=== PATIENT | female | born 1935 | race Caucasian/White ===

== ENCOUNTER → 2016-10-17 | Outpatient (CLI) | payer OTHER ==
[~2016-10-17] MED LIST: ALEVE ARTHRITI220 MG PO; ASPI-COR81 M1 PO; CALCIUM600 MG PO; CLARITIN10 MG PO; COMPLEXED POTAS99 MG PO; DICLOFENAC SOD50 MG PO; DOXYCYCLINE MO100 M1 PO; FISH OIL SUPER1 SGL PO; FISH OIL500 M1 PO; KEFZOL1 GM IM; METFORMIN1000 MG PO; OMEPRAZOLE20 MG PO; POTASSIUM GLUC550 M1 PO; SINGULAIR10 M1 PO; SINGULAIR10 MG PO
--- NOTE | ~2016-10-17 | PR ---
[place], [place] PROGRESS NOTE NAME: LUCIO QUINONES [facility] #: [id number] UNIT #: [id number] ROOM: DOCTOR: IRENE VASQUEZ M.D. BIRTHDATE: [birth year] DOS: 10/17/2016 This is a new wound care patient. CHIEF COMPLAINT: Wounds of the left knee and the abdomen. HISTORY OF PRESENT ILLNESS: The location of the wound is the left knee, it is secondary to trauma with repair, laceration, wound dehiscence and infection with severe cellulitis requiring an inpatient admission. The wounds have been present for approximately 5-6 weeks now. The patient has also a history of morbid obesity with recurrent wounds of the abdominal folds secondary to excessive moisture and pressure. She has a very large pannus that has problems with recurrent moisture. She is in a custodial at this time. She is there temporarily. She was seen in the Wound Clinic last week for the first time. She is going to be finishing with her rehabilitation and is going to be going home tomorrow. She is finished with her antibiotics. She says she is doing fairly well, as far as the wounds go. She continues to have some open wounds of the abdomen. We did ask to try to put a sheet in-between the folds to see if that could keep her abdominal fold ; however, she says she almost tripped over the sheet when she got up to ambulate so this did not work for her though she is using ABDs pads in the meantime to help keep the skin fold . OBJECTIVE: VITAL SIGNS: Stable. Temperature is 98.1, pulse is 68, respirations 18, blood pressure is 168/64. WOUND EXAM: The left lower extremity wound on the lateral side of the knee is measuring 2 x 3.1 x 0.1. It looks booth cleaner. It is not red. It is not erythematous. There is a very minimal necrotic tissue present. The wound on the medial aspect of the knee is also looking a whole lot better as well. The measurements are not a whole lot different, but there is overall much less necrotic tissue present and good granulation tissue. The length is 4.3 x 7 x 0.3 and there is a moderate amount of fibrin slough present in the base of the wound, but overall much less necrotic tissue. There is no surrounding cellulitis or erythema. There is a smaller wound distally to that, that is measuring 0.6 x 1.6 x 0.3, and there is really very minimal fibrin slough present. It looks it is not erythematous at all. There is another wound measuring on the abdomen that is measuring smaller at 0.6 x 0.6 x 0.1 that is on the left side of the lower quadrant. The wound on the right side of the abdomen is measuring a little smaller in length at 1.8, but measuring little wider and with 3.4 x 0.2. It still appears to be a stage 2 ulcer at this time. There is minimal to no necrotic tissue present at all. The other wounds are clustered in the abdominal folds and all measuring 4.5 x 2.8 x 0.1 and those appear fairly stable. They are open, but overall appearance is about the same as last week. Debridement was done of all of the knee wounds. There was a debridement done of the large wound on the medial aspect. The tissue removed was fibrin, slough and subcutaneous tissue. There was a minimal amount of bleeding. Post-debridement measurements are unchanged. The patient tolerated the debridement well. Instrument used was forceps, scissors and a [place], [place] [id number] #: [id number] ROOM: DOCTOR: IRENE VASQUEZ M.D. BIRTHDATE: [birth year] curette. Cetacaine spray was used top for topical anesthesia. On the lateral leg, the wound was debrided and this was more of a selective debridement. The only tissue removed was just some minimal fibrin, slough. There was no bleeding and no change in the post-debridement measurements. The patient tolerated the debridement well. The instrument used was a curette. There was also debridement done of the medial wound on the knee, which was a selective debridement as well. Tissue removed just fibrin, slough only. Post-debridement measurements are unchanged. There was no bleeding. The patient tolerated the debridement well. As far as the abdominal wounds, no debridement was done of these wounds. ASSESSMENT AND PLAN: Traumatic open wounds of the left knee with wound dehiscence and infection. Infection seems to have resolved. She is off antibiotics. The necrotic tissues definitely improving and she seems to be improving gradually. She does have some problems with the tape sticking to her skin causing some irritation. It is difficult area to keep a dressing on. So I would think we will try a foam with adhesive border over the TheraHoney and Maxorb to see if this will help hold the dressings in place. The abdominal wounds are related to moisture and pressure from the excessive pressure of her abdominal pannus. I would like to use Maxorb silver on any of the open wounds, just place them directly in the wound base and an ABD pads over this to help keep the abdominal folds , see how this helps and continue with the antifungal powder in the creases of the abdomen, but not on the wound directly. Follow up in 1 week. IRENE VASQUEZ MD CM:ELMO [id number] IRENE VASQUEZ M.D. 10/18/16 0742 interface
== END ==
LOC: WOUNDCARE 01:22
DX: S81.012D Laceration without foreign body, left knee, subsequent encounter (principal); L89.892 Pressure ulcer of other site, stage 2; E66.01 Morbid (severe) obesity due to excess calories; X58.XXXD Exposure to other specified factors, subsequent encounter

== ENCOUNTER → 2016-10-24 | Outpatient (CLI) | payer OTHER ==
--- NOTE | ~2016-10-24 | PR ---
[place], [place] PROGRESS NOTE NAME: LUCIO QUINONES [facility] #: [id number] UNIT #: [id number] ROOM: DOCTOR: CHRISTINA VidalIRENE BIRTHDATE: [birth year] DOS: 10/24/2016 WOUND CARE FOLLOWUP CHIEF COMPLAINT: Followup of left knee ulcers as well as ulcers of the abdomen. HISTORY OF PRESENT ILLNESS: The location of the wound is the left knee, it is secondary to trauma with subsequent repair, laceration, wound dehiscence, infection, severe cellulitis, complicated by morbid obesity as well. She has had the wounds for approximately 6-7 weeks. She had a prolonged hospital stay with IV antibiotics, eventually requiring rehabilitation at a shelter and then subsequently coming to the Wound Clinic. We have been following her for approximately 2 weeks now in the Wound Clinic. She does not have any specific complaints regarding the left knee wounds; however, she continues to have problems with recurrent wounds of the abdomen. There are open areas that she has had off and on for a long time now. She has a prominent large abdominal pannus that has a lot of excoriation, excessive moisture and causing pressure related injuries and openings from this. She is morbidly obese. She is now at home and has Home Health to help her. We did recommend Maxorb silver to be applied to the open areas around the wounds; however, it does not appear that this has been done. The patient states that as far as she knows, the only thing that is being put on there is nystatin powder and ABD pads. She has no other specific complaints. PHYSICAL EXAMINATION: She is afebrile. Her pulse is 64, respirations 18, blood pressure is 144/88 and temperature is 98.5. The left knee wound on the lateral side is measuring smaller at 1.6 x 2.7 x 0.1. There is minimal fibrin slough present in the base of the wound. It looks clean and is definitely healing. The other quite large wound that was located on the anterior knee portion is also measuring smaller at 3.8 x 6.5 x 0.3. It definitely looks a lot telephone cleaner with no sign of cellulitis or infection. There is a smaller open wound of the distal part of the knee that is measuring 0.7 x 1.4 x 0.2, that also looks improved with minimal necrotic tissue. There is a wound on the left part of the abdomen that is measuring 1.1 x 1.5 x 0.1. It looks superficial in nature and is quite circular. There is another wound on the right part of the lower abdomen, it is not improved at all, its measuring 2 x 2.6 x 0.1 and there is a halo around it with erythema around this area. There is a lot of areas between the abdominal folds that are reddened and with some satellite type lesions. Debridement was done of the larger abdominal wound. In the middle of it, it was noted a slight black area that looks to be related to a blood blister that was left alone, but there was some minimal slough present in the base of the wound, this was debrided and it was a superficial debridement selective only to remove just fibrin slough. There was minimal amount of bleeding that was controlled with pressure. The instrument used was a curette. The patient tolerated the debridement well. Post-debridement, a swab culture was obtained at this area. There was also subcutaneous debridements done of all the leg wounds. Tissue removed was fibrin slough and subcutaneous tissue. There was minimal amount of bleeding. The only thing there was some depth change in the larger wound to 0.4, but otherwise the measurements were the same. There was a minimal amount [place], [place] PROGRESS NOTE NAME: LUCIO QUINONES UNIT #: [id number] ROOM: DOCTOR: IRENE VASQUEZ M.D. BIRTHDATE: [birth year] of bleeding that was controlled with pressure. Instrument utilized was a curette. ASSESSMENT AND PLAN: The traumatic wounds of the left knee are definitely improving. I will continue with the present regimen which is TheraHoney and silver dressing, Maxorb silver is being used and a foam over it and having her change it every other day. Hopefully, we will be able to change to collagen soon and this is my anticipation within the next week. As far as the abdominal wounds go, I do think that it is pressure related and also secondary to fungal component and excessive moisture. I would like to use a silver dressing, which I suggested it before, Maxorb silver, but it does not seem to have been utilized. We will try the SilvaSorb powder on the open wounds. As far as the areas in the skin folds, I would like to instead of using powder, try the cream, ketaconazole, because it does not seem that the nystatin was really helping any. I would like her to wash her abdominal area daily with Hibiclens skin cleanser and have her try to keep the field with 100% cotton towel, soft, not rough, just to help keep excessive moisture in between those areas and hopefully this will help keep some of the pressure off of these wounds. It is really hard to put a dressing on these areas due to her body habitus at this point. So, ideally if we could apply a foam to one of these wounds that might help relieve some of the pressure, but I do not think it will stick and the patient has reported in the past that she does not want any type of dressings on those areas other than something that just can be laid on top of the wound. So, we will try this for now and see how it works. Cultures were taken. I do not think that there is a bacterial issue at this point, I think it is fungal related at this point. Followup is in one week. IRENE VASQUEZ MD CM:ELMO [id number] IRENE VASQUEZ M.D. 10/24/16 1432 interface
== END ==
LOC: WOUNDCARE 01:32
DX: T81.31XD Disruption of external operation (surgical) wound, not elsewhere classified, subsequent encounter (principal); L97.821 Non-pressure chronic ulcer of other part of left lower leg limited to breakdown of skin; L98.491 Non-pressure chronic ulcer of skin of other sites limited to breakdown of skin; E66.01 Morbid (severe) obesity due to excess calories; L30.4 Erythema intertrigo; Y83.9 Surgical procedure, unspecified as the cause of abnormal reaction of the patient, or of later complication, without mention of misadventure at the time of the procedure

== ENCOUNTER → 2016-10-31 | Outpatient (CLI) | payer OTHER ==
--- NOTE | ~2016-10-31 | PR ---
[place], [place] PROGRESS NOTE [id number] #: [id number] ROOM: DOCTOR: CHRISTINA VidalIRENE BIRTHDATE: [birth year] DOS: 10/31/2016 CHIEF COMPLAINT: Followup of left leg ulcerations as well as ulcers of the abdomen. HISTORY OF PRESENT ILLNESS: The location of the wound is the left knee. It is traumatic in origin, with subsequent repair. Postop wound dehiscence and infection with severe cellulitis. The wounds have been present for approximately 7-8 weeks now and they have been continuously improving and getting smaller. She also has some chronic, reoccurring wounds of the abdominal folds, which healed, but then reoccur quite quickly. These are pressure related and also related to excessive moisture and candidiasis. Her comorbid conditions are marked debility and severe obesity. She offers no specific complaints at this time. PHYSICAL EXAMINATION: GENERAL: She is afebrile, pulse is 70, respirations 18, temperature is 97.9, blood pressure is 160/82. SKIN: The wound on the left lateral knee is measuring smaller 1.4 x 2.5 x 0.1. There is really no surrounding erythema. There is good granulation tissue. Minimal fibrinous slough is present. The large wound on the medial aspect of the knee is measuring smaller at 3.5 x 5.6 x 0.3 in certain areas, although in general, the depth is much less. There is minimal fibrin slough present in the base of the wound. The periwound is nonerythematous. The smaller wound distally is also much smaller and is getting better at 0.5 x 0.6 x 0.1. There is no necrotic tissue present. The wound on the right part of the abdominal fold is essentially same at 2 x 2.6 x 0.1. The surrounding erythema is much improved. There is really no visible necrotic tissue present. A lot of the erythema, excessive moisture, and intertrigo that was present before seems much improved as well. She has a new wound that is measuring 1.2 x 1.3 x 0.1 and this area has also reopened apparent. She had a wound here before that looked to have healed and it has reopened. Another area that is open as 1 x 0.8 x 0.1, that also looks to be a recurrent wound in the abdominal folds, mostly in the left side. Debridement was done of the two larger knee wounds. The tissue removed was fibrin slough and subcutaneous tissue. Instrument utilized was a curette. There was a minimal amount of bleeding that was controlled with pressure. Post-debridement measurements are not changed. The patient tolerated the debridement well. A curette was utilized. ASSESSMENT AND PLAN: Chronic ulcer of the left knee, which is definitely improving. We will continue with the current dressing, which is honey and Maxorb Ag and hopefully, change to a collagen by next week. It does look like it is definitely getting a lot smaller. The wounds on her abdominal folds are secondary to pressure, excessive moisture, and probable fungal element as well. The, ketaconazole seems to have really helped as far as the erythema that was noted before. We are going to continue with that and have her continue with the Arglaes powder and also use a little bit of Maxorb over these areas to see if we can help dry them up a little bit more. If we can get a foam on there to help keep some of the pressure and friction from rubbing against the folds that might help as well. She does have some allergies to adhesive, so will have to use the [place], [place] PROGRESS NOTE NAME: LUCIO QUINONES UNIT #: [id number] ROOM: DOCTOR: IRENE VASQUEZ M.D. BIRTHDATE: [birth year] tape such as Medi-Fix tape for now, have her follow up in one week. IRENE VASQUEZ MD CM:PNLI [id number] IRENE VASQUEZ M.D. 11/01/16 1139 interface
== END | disposition home or self-care (01) ==
LOC: WOUNDCARE 03:02
DX: T81.31XD Disruption of external operation (surgical) wound, not elsewhere classified, subsequent encounter (principal); L97.821 Non-pressure chronic ulcer of other part of left lower leg limited to breakdown of skin; E66.9 Obesity, unspecified; L30.4 Erythema intertrigo; Y83.9 Surgical procedure, unspecified as the cause of abnormal reaction of the patient, or of later complication, without mention of misadventure at the time of the procedure

== ENCOUNTER → 2016-11-07 | Outpatient (CLI) | payer OTHER ==
--- NOTE | ~2016-11-07 | PR ---
[place], [place] PROGRESS NOTE NAME: LUCIO QUINONES [facility] #: [id number] UNIT #: [id number] ROOM: DOCTOR: CHRISTINA VidalIRENE BIRTHDATE: [birth year] DOS: 11/07/2016 CHIEF COMPLAINT: Followup of left leg ulceration as well as ulcers of the abdomen. HISTORY OF PRESENT ILLNESS: The location of the wound is the left knee. She has had several wounds there, 3 in general that were quite large. They were traumatic in origin, that required suturing. There was a postop wound dehiscence with infection and severe cellulitis. She has had the wounds for approximately 8-9 weeks now and they have been continuingly improving and getting much smaller. She also has some chronic recurring abdominal ulcers in the skin folds that are secondary to pressure as well as severe pannus formation, lots of moisture and evidence of candidiasis intertrigo. She is morbidly obese and severely debilitated. Today, she comes in stating that the wounds of her knees look much better. There is one area of the wound on her knee that is somewhat more protuberant than others, but overall they are looking much better in general, though abdominal folds; however, the wounds that had healed last week have now reopened and there is a new ulcer on the left lateral side and has opened up again. I had recommended Maxorb over these areas, however, I do not think that they have been using it. She has home health. She does not recall them using any Maxorb on this area. PHYSICAL EXAMINATION: VITAL SIGNS: She is afebrile, pulse of 74, respirations 18, blood pressure is 144/70. SKIN: The wound of her lateral left lower leg is measuring 1.2 x 1.8 x 0.1, it is hypergranulated. There is no periwound erythema or cellulitis noted. No overt necrotic tissue is present. The wound on the medial aspect of the leg is much smaller as well at 3 x 4.5 x 0.2 and it looks clean. There is good healthy granulation tissue. There is no periwound cellulitis. The other wound at the distal end is almost healed, it is measuring 0.2 x 0.2 x 0.1. The wound on the right side of the abdomen is essentially unchanged at 2 x 2.6 x 0.1 cm. There is no surrounding cellulitis, erythema, or purulence noted. It looks fairly clean, but is circular in nature and superficial. The wound on the left part of the abdomen is measuring 1.4 x 0.9 x 0.1. There is another wound that is measuring 1.4 x 0.9 x 0.1 also in the left side of abdominal fold. There is another wound measuring 1.2 x 2 x 0.1 as well as one that is measuring 1.5 x 1.5 x 0.1. These all have been there before. Two of them are slightly bigger, wound #7 and #8. DATA: A swab culture was taken of the right wound, of the right abdominal fold. The periwound does not appear as erythematous as it did in the past; however, it is still fairly moist in general. The wounds appear clean, they do not appear acutely infected. These are the abdominal wounds that I am talking about. So, debridement was not done today. A debridement; however, was done on two of the leg wounds. The tissue removed was fibrin, slough and subcutaneous tissue. There was a moderate amount of bleeding. Some of the hypergranulation tissue was debrided as well and also silver nitrate was applied afterwards to help with the hypergranulation. The patient tolerated the procedure well. Cetacaine spray was used for topical anesthesia and the post-debridement [place], [place] PROGRESS NOTE NAME: LUCIO QUINONES UNIT #: [id number] ROOM: DOCTOR: IRENE VASQUEZ M.D. BIRTHDATE: [birth year] measurements are unchanged. ASSESSMENT AND PLAN: The leg wounds are definitely getting smaller and improving. There is a little bit of hypergranulation tissue noted on one of the wounds. We will stop the TheraHoney for now and switch to a collagen dressing, and if they can use a foam over it that might help absorb some of the drainage as well. The patient can follow up in 1 week with these wounds. The abdominal wounds are continuing to be a problem. A lot of it is secondary to friction and intertrigo; however, I believe the pressure is also a factor in these circular wounds. Culture was taken again. We may want to consider doing fungal cultures next week if bacteria cultures are negative and there is no change. I would like to try TheraHoney on these wounds and also a foam to help see if this will pad and protect the areas a little bit. Even though the patient has been encouraged to use cotton towels to keep abdominal fold and to help absorb moisture, I do not think this is working for her very well. I would like to see if we can obtain InterDry silver dressing for her. This we will see if we can order it though home health. This should help wick away moisture a little bit more. It is not clear to me why they have not been using the Maxorb, so we will just see if the foam, hopefully the foam will stick to some of these wounds. Some of them I do not think the foam will be able to stick as there is quite a bit large amount of clustered areas which we may just have to use an ABD pad for these, but we have tried some of the silver type of dressings on the wound such as Silvadene as well as the Arglaes powder, but does not seem to have been effective at all, so we will switch to a different product, TheraHoney, to see if this will help improve things for her. The patient is to follow up with us in one week. IRENE VASQUEZ MD CM:ELMO [id number] IRENE VASQUEZ M.D. 11/07/162204 interface
== END ==
LOC: WOUNDCARE 03:09
DX: T81.31XD Disruption of external operation (surgical) wound, not elsewhere classified, subsequent encounter (principal); L98.491 Non-pressure chronic ulcer of skin of other sites limited to breakdown of skin; L97.821 Non-pressure chronic ulcer of other part of left lower leg limited to breakdown of skin; E66.9 Obesity, unspecified; L30.4 Erythema intertrigo; Y83.9 Surgical procedure, unspecified as the cause of abnormal reaction of the patient, or of later complication, without mention of misadventure at the time of the procedure